=== PATIENT | female | born 1970 | race African-American/Black ===

== ENCOUNTER 2017-05-06 01:47 | Inpatient (IN) ==
[2017-05-06] MEDS ORDERED: PROPOFOL 1,000 MG/100 ML BOTTLE IV ONE (01:48)
[2017-05-06 02:34] LABS: ABG Base Excess 0.5 MMOL/L (-2.5-2.5); ABG HCO3 24.9 MMOL/L (20-26); ABG Oxygen Saturation 99.5 % (95-100); ABG PH 7.211 (7.35-7.45); ABG TCO2 28.3 MMOL/L (23-27); Pt O2 Delivery Device Ventilator
[2017-05-06 02:36] LABS: ABG PCO2 79.1 MM HG (35-48)
[2017-05-06] MEDS: PROPOFOL 1,000 MG/100 ML BOTTLE IV SCH ×3 (03:00→17:52)
[2017-05-06] MEDS: fentaNYL INJ 1,250 MCG in SODIUM CHLORIDE 0.9% 225 ML IV SCH ×3 (03:53→20:30)
[2017-05-06] MEDS ORDERED: ALBUTEROL 2.5 MG/3 ML NEB RESP TX PRN (04:17)
[2017-05-06] MEDS ORDERED: ONDANSETRON 4 MG/2 ML VIAL IV PRN (04:17)
[2017-05-06] MEDS ORDERED: fentaNYL INJ 1,250 MCG in SODIUM CHLORIDE 0.9% 225 ML IV SCH (04:30)
[2017-05-06] MEDS: PIPERACILLIN/TAZOBACTAM 3,375 MG in SODIUM CHLORIDE 0.9% 100 ML IV SCH ×3 (05:36→21:16)
[2017-05-06] MEDS: PANTOPRAZOLE 40 MG VIAL IV SCH (05:46)
[2017-05-06] MEDS: methylPREDNISolone SOD SUC 40 MG/1 ML VIAL IV SCH ×3 (05:46→21:16)
[2017-05-06 06:13] LABS: Allen Test Positive; Pt O2 Delivery Device Ventilator
[2017-05-06 06:16] LABS: ABG Base Excess 1.1 MMOL/L (-2.5-2.5); ABG HCO3 25.5 MMOL/L (20-26); ABG Oxygen Saturation 99.9 % (95-100); ABG PCO2 66.6 MM HG (35-48); ABG PH 7.267 (7.35-7.45)
[2017-05-06] MEDS ORDERED: ALBUTEROL/IPRATROPIUM 3 ML NEB RESP TX SCH (07:00)
[2017-05-06] MEDS: ALBUTEROL/IPRATROPIUM 3 ML NEB RESP TX SCH ×3 (07:20→20:31)
[2017-05-06 07:30] LABS: Bilirubin,Total 0.8 MG/DL (0.2-1.0); Calcium 8.3 MG/DL (8.5-10.1); Osmolality,Calculated 259.7 MOS/KG (273-304); Potassium 5.6 MMOL/L (3.5-5.1); Total Protein 5.8 G/DL (6.4-8.3)
[2017-05-06 08:00] LABS: Barbiturates Screen,Urine Negative (Negative); Benzodiazepines Screen,Urine Positive (Negative); Cannabinoid Screen,Urine Negative (Negative); Opiate Screen,Urine Positive (Negative); Phencyclidine Screen,Urine Negative (Negative)
[2017-05-06 08:03] LABS: Apearance,Urine Slightly Hazy (Clear); Bacteria,Urine Occasional /HPF (Few); Bilirubin,Urine Negative (Negative); Blood, Urine Small mg/dL (Negative); Glucose,Urine (UA) Negative (Negative); Hyaline Casts,Urine 4 /LPF (0-3); Ketones,Urine 20 mg/dL (Negative); Mucus,Urine Occasional /LPF (Occasional); Nitrite,Urine Negative (Negative); Protein,Urine Negative; RBC,Urine 42 /HPF (0-4); Squamous Epithelial Cell,Urine Occasional /HPF (0-10); Urine Color Yellow (Yellow); Urine Specific Gravity 1.016 (1.001-1.035); WBC,Urine 1 /HPF (0-6)
[2017-05-06 08:26] LABS: Hepatitis A Ab IgM Quant 0.12 Index; Hepatitis A Ab IgM Result Negative (Negative); Hepatitis B Core IgM Quant 0.11 Index; Hepatitis B Core IgM Result Negative (Negative); Hepatitis B Surface Ag Quant < 0.10 Index; Hepatitis B Surface Ag Result Negative (Negative); Hepatitis C Virus Ab Quant < 0.02 Index; Hepatitis C Virus Ab Result Negative (Negative)
[2017-05-06] MEDS: MONTELUKAST 10 MG TABLET PO SCH (09:04)
[2017-05-06] MEDS: METOPROLOL TARTRATE 50 MG TABLET PO SCH ×2 (09:04→21:16)
[2017-05-06] MEDS: FOLIC ACID 1 MG TABLET PO SCH (09:04)
[2017-05-06] MEDS: LEVOTHYROXINE 100 MCG TABLET PO SCH (09:04)
[2017-05-06] MEDS: BUDESONIDE/FORMOTEROL 160-4.5 INHALER 6 GM INH SCH ×2 (09:04→21:16)
[2017-05-06] MEDS: ASPIRIN EC 81 MG TABLET PO SCH (09:11)
[2017-05-06] MEDS: ENOXAPARIN 40 MG/0.4 ML SYRINGE SUBCUT SCH (09:12)
[2017-05-06] MEDS: VANCOMYCIN INJ 750 MG in SODIUM CHLORIDE 0.9% 150 ML IV SCH ×2 (11:03→17:54)
[2017-05-06 11:34] LABS: Calcium 8.4 MG/DL (8.5-10.1); Magnesium 1.9 MG/DL (1.8-2.4); Osmolality,Calculated 263.4 MOS/KG (273-304); Potassium 4.5 MMOL/L (3.5-5.1)
[2017-05-07] MEDS: PROPOFOL 1,000 MG/100 ML BOTTLE IV SCH ×4 (00:01→21:38)
[2017-05-07] MEDS: ALBUTEROL/IPRATROPIUM 3 ML NEB RESP TX SCH ×4 (01:16→20:18)
[2017-05-07] MEDS: VANCOMYCIN INJ 750 MG in SODIUM CHLORIDE 0.9% 150 ML IV SCH ×3 (01:33→21:20)
[2017-05-07 03:11] LABS: ABG Base Excess 5.1 MMOL/L (-2.5-2.5); ABG HCO3 28.9 MMOL/L (20-26); ABG Oxygen Saturation 94.9 % (95-100); ABG PH 7.323 (7.35-7.45); ABG PO2 77.9 MM HG (80-95); ABG TCO2 29.9 MMOL/L (23-27); Pt O2 Delivery Device Ventilator
[2017-05-07] MEDS: PANTOPRAZOLE 40 MG VIAL IV SCH (05:26)
[2017-05-07] MEDS: methylPREDNISolone SOD SUC 40 MG/1 ML VIAL IV SCH ×3 (05:26→21:19)
[2017-05-07] MEDS: PIPERACILLIN/TAZOBACTAM 3,375 MG in SODIUM CHLORIDE 0.9% 100 ML IV SCH ×3 (05:27→21:23)
[2017-05-07 06:14] LABS: Basophils % 0.1 % (0.0-0.8); Hematocrit 34.1 VOL% (35.7-47.0); Hemoglobin 11.6 GM/DL (12.0-16.0); Immature Granulocytes % 0.5 %; Immature Granulocytes Absolute 0.07 #; Lymphocytes # 0.9 10*3/uL (1.4-4.0); Lymphocytes % 6.4 % (21.3-54.2); Mean Corpuscular Hemoglobin 33 PG (27-34); Mean Corpuscular Volume 98.3 FL (87-102); Mean Platelet Volume 11.5 FL (9.6-12.0); Monocytes % 6.5 % (1.7-12.7); Neutrophils # 12.8 10*3/uL (1.4-7.4); Neutrophils % 86.5 % (38.7-73.9); Platelet Count 183 T/CUMM (130-400); Red Blood Count 3.47 MC/CUMM (3.8-5.5); Red Cell Distribution Width 13.7 % (9.3-17.3); White Blood Count 14.7 T/CUMM (4-12)
[2017-05-07 06:58] LABS: Albumin 2.9 G/DL (3.4-5.0); Calcium 8.9 MG/DL (8.5-10.1); Osmolality,Calculated 270.8 MOS/KG (273-304); Potassium 4.2 MMOL/L (3.5-5.1); Total Protein 5.4 G/DL (6.4-8.3)
[2017-05-07] MEDS: fentaNYL INJ 1,250 MCG in SODIUM CHLORIDE 0.9% 225 ML IV SCH ×3 (07:00→17:55)
[2017-05-07 07:05] LABS: Free T4 (Free Thyroxine) 1.52 NG/DL (0.76-1.46); Thyroid Stimulating Hormone 0.462 uIU/ml (0.358-3.74)
[2017-05-07] MEDS: BUDESONIDE/FORMOTEROL 160-4.5 INHALER 6 GM INH SCH ×2 (09:49→21:45)
[2017-05-07] MEDS: METOPROLOL TARTRATE 50 MG TABLET PO SCH ×2 (09:49→21:20)
[2017-05-07] MEDS: ENOXAPARIN 40 MG/0.4 ML SYRINGE SUBCUT SCH (09:55)
[2017-05-07] MEDS ORDERED: LIDOCAINE 2% VISCOUS 100 ML BOTTLE ONE (10:14)
[2017-05-07] MEDS: ASPIRIN EC 81 MG TABLET PO SCH (12:37)
[2017-05-07] MEDS: MONTELUKAST 10 MG TABLET PO SCH (12:37)
[2017-05-07] MEDS: FOLIC ACID 1 MG TABLET PO SCH (12:37)
[2017-05-07] MEDS: LEVOTHYROXINE 100 MCG TABLET PO SCH (12:37)
[2017-05-08] MEDS: ALBUTEROL/IPRATROPIUM 3 ML NEB RESP TX SCH ×4 (00:32→19:42)
[2017-05-08] MEDS: fentaNYL INJ 1,250 MCG in SODIUM CHLORIDE 0.9% 225 ML IV SCH ×4 (03:02→20:54)
[2017-05-08] MEDS: PROPOFOL 1,000 MG/100 ML BOTTLE IV SCH ×2 (03:50→16:33)
[2017-05-08 04:29] LABS: ABG Base Excess 5.7 MMOL/L (-2.5-2.5); ABG HCO3 29.6 MMOL/L (20-26); ABG Oxygen Saturation 98.1 % (95-100); ABG PCO2 55.9 MM HG (35-48); ABG PH 7.377 (7.35-7.45); ABG TCO2 28.3 MMOL/L (23-27); Allen Test Positive; Pt O2 Delivery Device Ventilator
[2017-05-08] MEDS: VANCOMYCIN INJ 750 MG in SODIUM CHLORIDE 0.9% 150 ML IV SCH ×3 (04:54→21:13)
[2017-05-08] MEDS: methylPREDNISolone SOD SUC 40 MG/1 ML VIAL IV SCH ×3 (04:54→21:13)
[2017-05-08] MEDS: PIPERACILLIN/TAZOBACTAM 3,375 MG in SODIUM CHLORIDE 0.9% 100 ML IV SCH ×3 (04:55→21:14)
[2017-05-08] MEDS: PANTOPRAZOLE 40 MG VIAL IV SCH (05:44)
[2017-05-08] MEDS: ENOXAPARIN 40 MG/0.4 ML SYRINGE SUBCUT SCH (08:53)
[2017-05-08] MEDS: LEVOTHYROXINE 100 MCG TABLET PO SCH (08:53)
[2017-05-08] MEDS: FOLIC ACID 1 MG TABLET PO SCH (08:53)
[2017-05-08] MEDS: METOPROLOL TARTRATE 50 MG TABLET PO SCH ×2 (08:53→21:15)
[2017-05-08] MEDS: MONTELUKAST 10 MG TABLET PO SCH (08:53)
[2017-05-08] MEDS: ASPIRIN EC 81 MG TABLET PO SCH (08:53)
[2017-05-08] MEDS: BUDESONIDE/FORMOTEROL 160-4.5 INHALER 6 GM INH SCH ×2 (08:57→21:51)
[2017-05-09] MEDS: ALBUTEROL/IPRATROPIUM 3 ML NEB RESP TX SCH ×4 (01:28→19:16)
[2017-05-09] MEDS: PROPOFOL 1,000 MG/100 ML BOTTLE IV SCH ×3 (01:30→17:28)
[2017-05-09 03:13] LABS: ABG Base Excess 6.3 MMOL/L (-2.5-2.5); ABG HCO3 30.1 MMOL/L (20-26); ABG Oxygen Saturation 97.9 % (95-100); ABG PCO2 53.2 MM HG (35-48); ABG PH 7.395 (7.35-7.45); ABG TCO2 29.1 MMOL/L (23-27); Allen Test Positive; Pt O2 Delivery Device Ventilator
[2017-05-09] MEDS: fentaNYL INJ 1,250 MCG in SODIUM CHLORIDE 0.9% 225 ML IV SCH ×4 (05:07→23:53)
[2017-05-09] MEDS: VANCOMYCIN INJ 750 MG in SODIUM CHLORIDE 0.9% 150 ML IV SCH ×3 (05:07→19:59)
[2017-05-09] MEDS: PANTOPRAZOLE 40 MG VIAL IV SCH (05:08)
[2017-05-09] MEDS: methylPREDNISolone SOD SUC 40 MG/1 ML VIAL IV SCH ×3 (05:08→20:00)
[2017-05-09] MEDS: PIPERACILLIN/TAZOBACTAM 3,375 MG in SODIUM CHLORIDE 0.9% 100 ML IV SCH ×3 (05:10→21:22)
[2017-05-09 05:57] LABS: Magnesium 2.6 MG/DL (1.8-2.4); Phosphorous 3.4 MG/DL (2.5-4.9); Prealbumin 14.2 MG/DL (20-40)
[2017-05-09] MEDS: BUDESONIDE/FORMOTEROL 160-4.5 INHALER 6 GM INH SCH ×2 (09:02→21:22)
[2017-05-09] MEDS: LEVOTHYROXINE 100 MCG TABLET PO SCH (09:22)
[2017-05-09] MEDS: MONTELUKAST 10 MG TABLET PO SCH (09:22)
[2017-05-09] MEDS: FOLIC ACID 1 MG TABLET PO SCH (09:22)
[2017-05-09] MEDS: ENOXAPARIN 40 MG/0.4 ML SYRINGE SUBCUT SCH (09:22)
[2017-05-09] MEDS: METOPROLOL TARTRATE 50 MG TABLET PO SCH ×2 (09:22→21:22)
[2017-05-09] MEDS: ASPIRIN EC 81 MG TABLET PO SCH (09:22)
[2017-05-10] MEDS: ALBUTEROL/IPRATROPIUM 3 ML NEB RESP TX SCH ×4 (01:47→19:42)
[2017-05-10] MEDS: PROPOFOL 1,000 MG/100 ML BOTTLE IV SCH ×3 (02:09→17:28)
[2017-05-10] MEDS: fentaNYL INJ 1,250 MCG in SODIUM CHLORIDE 0.9% 225 ML IV SCH ×3 (04:14→20:27)
[2017-05-10] MEDS: PANTOPRAZOLE 40 MG VIAL IV SCH (04:18)
[2017-05-10] MEDS: methylPREDNISolone SOD SUC 40 MG/1 ML VIAL IV SCH ×3 (04:18→20:27)
[2017-05-10] MEDS: VANCOMYCIN INJ 750 MG in SODIUM CHLORIDE 0.9% 150 ML IV SCH ×3 (04:18→20:27)
[2017-05-10] MEDS: PIPERACILLIN/TAZOBACTAM 3,375 MG in SODIUM CHLORIDE 0.9% 100 ML IV SCH ×3 (05:25→21:48)
[2017-05-10] MEDS: LEVOTHYROXINE 100 MCG TABLET PO SCH (08:10)
[2017-05-10] MEDS: MONTELUKAST 10 MG TABLET PO SCH (08:10)
[2017-05-10] MEDS: ENOXAPARIN 40 MG/0.4 ML SYRINGE SUBCUT SCH (08:10)
[2017-05-10] MEDS: FOLIC ACID 1 MG TABLET PO SCH (08:10)
[2017-05-10] MEDS: BUDESONIDE/FORMOTEROL 160-4.5 INHALER 6 GM INH SCH ×2 (08:11→22:39)
[2017-05-10] MEDS: METOPROLOL TARTRATE 50 MG TABLET PO SCH ×2 (08:11→20:26)
[2017-05-10] MEDS: ASPIRIN EC 81 MG TABLET PO SCH (08:11)
[2017-05-11] MEDS: PROPOFOL 1,000 MG/100 ML BOTTLE IV SCH ×3 (00:20→05:12)
[2017-05-11] MEDS: ALBUTEROL/IPRATROPIUM 3 ML NEB RESP TX SCH ×6 (01:48→23:23)
[2017-05-11 03:45] LABS: Allen Test Positive; Pt O2 Delivery Device Ventilator
[2017-05-11 03:46] LABS: ABG Base Excess 9.9 MMOL/L (-2.5-2.5); ABG HCO3 33.5 MMOL/L (20-26); ABG Oxygen Saturation 92.6 % (95-100); ABG PCO2 58.5 MM HG (35-48); ABG PH 7.408 (7.35-7.45); ABG PO2 63.8 MM HG (80-95); ABG TCO2 32.6 MMOL/L (23-27)
[2017-05-11] MEDS: fentaNYL INJ 1,250 MCG in SODIUM CHLORIDE 0.9% 225 ML IV SCH (04:02)
[2017-05-11] MEDS: methylPREDNISolone SOD SUC 40 MG/1 ML VIAL IV SCH ×3 (04:09→21:34)
[2017-05-11] MEDS: VANCOMYCIN INJ 750 MG in SODIUM CHLORIDE 0.9% 150 ML IV SCH ×3 (04:09→21:34)
[2017-05-11] MEDS: PANTOPRAZOLE 40 MG VIAL IV SCH (04:18)
[2017-05-11] MEDS ORDERED: METHOTREXATE 2.5 MG TABLET PO SCH (04:47)
[2017-05-11] MEDS: PIPERACILLIN/TAZOBACTAM 3,375 MG in SODIUM CHLORIDE 0.9% 100 ML IV SCH ×2 (05:16→16:46)
[2017-05-11 05:58] LABS: Basophils % 0.1 % (0.0-0.8); Hematocrit 36.6 VOL% (35.7-47.0); Hemoglobin 12.2 GM/DL (12.0-16.0); Immature Granulocytes % 0.4 %; Immature Granulocytes Absolute 0.05 #; Lymphocytes # 1.2 10*3/uL (1.4-4.0); Lymphocytes % 10.4 % (21.3-54.2); Mean Corpuscular HGB Conc 33.3 GM/DL (32-36); Mean Corpuscular Hemoglobin 33 PG (27-34); Mean Corpuscular Volume 99.2 FL (87-102); Mean Platelet Volume 10.8 FL (9.6-12.0); Monocytes # 0.7 10*3/uL (0.11-0.8); Neutrophils # 9.6 10*3/uL (1.4-7.4); Neutrophils % 83.1 % (38.7-73.9); Platelet Count 207 T/CUMM (130-400); Red Blood Count 3.69 MC/CUMM (3.8-5.5); Red Cell Distribution Width 14.1 % (9.3-17.3); White Blood Count 11.6 T/CUMM (4-12)
[2017-05-11 06:23] LABS: Calcium 8.7 MG/DL (8.5-10.1); Osmolality,Calculated 289.8 MOS/KG (273-304); Potassium 3.9 MMOL/L (3.5-5.1)
[2017-05-11] MEDS: METOPROLOL TARTRATE 50 MG TABLET PO SCH ×2 (09:34→21:34)
[2017-05-11] MEDS: FOLIC ACID 1 MG TABLET PO SCH (09:34)
[2017-05-11] MEDS: ASPIRIN EC 81 MG TABLET PO SCH (09:34)
[2017-05-11] MEDS: MONTELUKAST 10 MG TABLET PO SCH (09:34)
[2017-05-11] MEDS: LEVOTHYROXINE 100 MCG TABLET PO SCH (09:34)
[2017-05-11] MEDS: ENOXAPARIN 40 MG/0.4 ML SYRINGE SUBCUT SCH (09:35)
[2017-05-11] MEDS: BUDESONIDE/FORMOTEROL 160-4.5 INHALER 6 GM INH SCH ×2 (13:36→21:43)
[2017-05-11] MEDS ORDERED: ZALEPLON 5 MG CAPSULE PO ONE (23:38)
[2017-05-12] MEDS: PIPERACILLIN/TAZOBACTAM 3,375 MG in SODIUM CHLORIDE 0.9% 100 ML IV SCH ×3 (01:04→17:52)
[2017-05-12] MEDS: ALBUTEROL/IPRATROPIUM 3 ML NEB RESP TX SCH ×5 (02:38→21:28)
[2017-05-12] MEDS: methylPREDNISolone SOD SUC 40 MG/1 ML VIAL IV SCH ×3 (06:57→21:49)
[2017-05-12] MEDS: VANCOMYCIN INJ 750 MG in SODIUM CHLORIDE 0.9% 150 ML IV SCH ×3 (06:59→21:48)
[2017-05-12] MEDS: METOPROLOL TARTRATE 50 MG TABLET PO SCH ×2 (09:07→21:49)
[2017-05-12] MEDS: FOLIC ACID 1 MG TABLET PO SCH (09:07)
[2017-05-12] MEDS: MONTELUKAST 10 MG TABLET PO SCH (09:07)
[2017-05-12] MEDS: ASPIRIN EC 81 MG TABLET PO SCH (09:07)
[2017-05-12] MEDS: LEVOTHYROXINE 100 MCG TABLET PO SCH (09:07)
[2017-05-12] MEDS: ENOXAPARIN 40 MG/0.4 ML SYRINGE SUBCUT SCH (09:07)
[2017-05-12] MEDS: BUDESONIDE/FORMOTEROL 160-4.5 INHALER 6 GM INH SCH ×2 (09:08→21:52)
[2017-05-12 11:04] LABS: ABG Base Excess 10.1 MMOL/L (-2.5-2.5); ABG HCO3 33.8 MMOL/L (20-26); ABG Oxygen Saturation 94.9 % (95-100); ABG PCO2 52.2 MM HG (35-48); ABG PH 7.448 (7.35-7.45); ABG PO2 72.7 MM HG (80-95); ABG TCO2 31.6 MMOL/L (23-27); Allen Test Positive
[2017-05-12] MEDS: ALPRAZolam 0.5 MG TABLET PO PRN (14:28)
[2017-05-13] MEDS: ALBUTEROL/IPRATROPIUM 3 ML NEB RESP TX SCH ×6 (00:16→19:14)
[2017-05-13] MEDS: PIPERACILLIN/TAZOBACTAM 3,375 MG in SODIUM CHLORIDE 0.9% 100 ML IV SCH ×3 (02:01→18:00)
[2017-05-13] MEDS: VANCOMYCIN INJ 750 MG in SODIUM CHLORIDE 0.9% 150 ML IV SCH ×2 (04:10→14:49)
[2017-05-13] MEDS: methylPREDNISolone SOD SUC 40 MG/1 ML VIAL IV SCH ×2 (04:13→18:00)
[2017-05-13] MEDS: LEVOTHYROXINE 100 MCG TABLET PO SCH ×2 (05:41→06:46)
[2017-05-13] MEDS ORDERED: ZINC OXIDE 16% PASTE 57 GM TUBE TOP PRN (06:27)
[2017-05-13] MEDS: ENOXAPARIN 40 MG/0.4 ML SYRINGE SUBCUT SCH (08:11)
[2017-05-13] MEDS: METOPROLOL TARTRATE 50 MG TABLET PO SCH ×2 (08:11→19:59)
[2017-05-13] MEDS: FOLIC ACID 1 MG TABLET PO SCH (08:11)
[2017-05-13] MEDS: MONTELUKAST 10 MG TABLET PO SCH (08:11)
[2017-05-13] MEDS: BUDESONIDE/FORMOTEROL 160-4.5 INHALER 6 GM INH SCH ×2 (08:11→20:00)
[2017-05-13] MEDS: ASPIRIN EC 81 MG TABLET PO SCH (08:11)
[2017-05-13] MEDS: ALPRAZolam 0.5 MG TABLET PO PRN (19:42)
[2017-05-14] MEDS: ALBUTEROL/IPRATROPIUM 3 ML NEB RESP TX SCH ×5 (00:35→15:39)
[2017-05-14] MEDS: VANCOMYCIN INJ 750 MG in SODIUM CHLORIDE 0.9% 150 ML IV SCH ×2 (02:31→09:30)
[2017-05-14] MEDS: PIPERACILLIN/TAZOBACTAM 3,375 MG in SODIUM CHLORIDE 0.9% 100 ML IV SCH ×2 (03:21→10:54)
[2017-05-14] MEDS: methylPREDNISolone SOD SUC 40 MG/1 ML VIAL IV SCH (04:47)
[2017-05-14] MEDS: METOPROLOL TARTRATE 50 MG TABLET PO SCH (08:36)
[2017-05-14] MEDS: LEVOTHYROXINE 100 MCG TABLET PO SCH (08:36)
[2017-05-14] MEDS: FOLIC ACID 1 MG TABLET PO SCH (08:36)
[2017-05-14] MEDS: ASPIRIN EC 81 MG TABLET PO SCH (08:37)
[2017-05-14] MEDS: ENOXAPARIN 40 MG/0.4 ML SYRINGE SUBCUT SCH (08:37)
[2017-05-14] MEDS: MONTELUKAST 10 MG TABLET PO SCH (08:37)
[2017-05-14] MEDS: BUDESONIDE/FORMOTEROL 160-4.5 INHALER 6 GM INH SCH (08:37)
[2017-05-14 10:48] VITALS: BP 148/72
== END 2017-05-14 15:56 | disposition hospice, home (50) | DRG 207 ==
LOC: EDUNIT# → EDBD → N.ED 01:47 → SUPCPDRO 02:51 → SUATTDRO 02:51 → N.EDINP 02:51 → N.CC 03:56 → N.5E 05-11 14:21
PROVIDERS: ADMIT Internal Medicine; ATTEND Internal Medicine